=== PATIENT | male | born 1955 | race Caucasian/White ===

== ENCOUNTER → 2017-04-10 | Outpatient (CLI) | payer OTHER ==
[~2017-04-10] MED LIST: LORTAB 7.5/5001 TA1 PO
== END ==
LOC: SLEEPLAB 14:13
DX: G47.33 Obstructive sleep apnea (adult) (pediatric) (principal)

== ENCOUNTER → 2019-06-18 | Outpatient (CLI) | payer OTHER ==
[~2019-06-18] VITALS: Ht 182.9 cm; Wt 86.2 kg
[~2019-06-18] MED LIST changes: +ASPIR 8181 M1 PO; +CRESTOR5 MG PO; +NEXIUM40 MG PO
--- NOTE | ~2019-06-18 | P ---
[facility] [place] [address] PROCEDURE REPORT Name: NIKO KING Room #: REG [facility]#: [id number] Admission: 06/18/19 Attend Phys: Bry Randolph Discharge: Date of : 53 Report #: [id number] THIS REPORT FOR: //name// CC: Bry Pena MD DATE OF SERVICE: 06/18/2019 PROCEDURE PERFORMED: Colonoscopy with biopsies. HISTORY OF PRESENT ILLNESS: The patient is a 64-year-old male who presents today for routine screening colonoscopy. No previous history of endoscopy. He denies any symptoms. No family history of colon cancer. DESCRIPTION OF PROCEDURE: The risks and benefits of the procedure were explained to the patient, those risks including but not limited to bleeding, perforation and the risk of sedation. He understood these risks and gave informed consent. Sedation was given using propofol per anesthesia. Next, a digital rectal exam was initially performed, which was normal. Next, using a standard Olympus colonoscope, the scope was placed in the patient's anus and advanced under direct vision to the cecum. The overall prep was good. In the cecum, there was a 3 mm sessile polyp. This was removed with cold forceps, otherwise normal. The ileocecal valve was normal. The ascending, transverse and descending colon were normal. Multiple diverticula were noted in the sigmoid colon, no evidence of inflammation, otherwise normal. The rectal mucosa was normal. On retroflexion, small nonbleeding internal hemorrhoids were noted. Scope was then withdrawn and the procedure terminated. The patient tolerated the procedure well. IMPRESSION: 1. Small colonic polyp. 2. Sigmoid diverticulosis. 3. Internal hemorrhoids. 4. Otherwise, normal colonoscopy. RECOMMENDATIONS: 1. Await biopsy results. 2. If polyp is hyperplastic, repeat in 10 years; if adenomatous polyp, repeat in 5 years. [facility] [address] [place] [address] PROCEDURE REPORT Name: NIKO KING Room #: REG [facility].#: [id number] Admission: 06/18/19 Attend Phys: Bry Randolph Discharge: Date of : 53 Report #: [id number] Thank you for allowing me to participate in his care. By: [id number] [id number] Bry Bowman MD /nt
--- NOTE | 2019-06-20 20:06 | PATH ---
[facility] [address] [place] [address] PATHOLOGY RPT PROCEDURE Name: NIKO KING Room #: REG [facility].#: [id number] Admission: 06/18/19 Date of : 53 Discharge: Report #: [id number] Path Case #: [id number] [facility] Accession Number: [id number] . 01 Material submitted: . cecum - POLYP AT CECUM . 01 Clinical history: . Pre-op diagnosis: Screening Post-op diagnosis: Diverticulosis, colon polyp . 02 Diagnosis: "Polyp at cecum", biopsy: - Tubular adenoma; no high-grade dysplasia. (CLW:pit; 06/20/2019) P 06/20/2019 1417 Local . 02 Electronically signed: . Selma Monaco MD, Pathologist NPI- [id number] . 01 Gross description: . The specimen is received in formalin, labeled "Niko King, polyp at cecum". Received are two segments of pale cuellar soft tissue ranging in size from 0.3 to 0.4 cm in maximum dimensions. The specimen is submitted entirely in cassette A1. (CAA; 06/19/2019) QAC/QAC 06/19/2019 1045 Local . 02 Pathologist provided ICD-10: D12.0 . 02 CPT . 569231 Specimen Comment: A courtesy copy of this report has been sent to [phone], [phone] Specimen Comment: [id number] Specimen Comment: Report sent to / DR CHAVEZ Performed at: [address], [place], [place] [id number] MD Silverio Casanova MD Phone: [phone] Performed at: [address] [id number] MD Yane Smith MD Phone: [phone]
== END | disposition home or self-care (01) ==
LOC: GI 07:50
DX: Z12.11 Encounter for screening for malignant neoplasm of colon (principal); D12.0 Benign neoplasm of cecum; K57.30 Diverticulosis of large intestine without perforation or abscess without bleeding; K64.8 Other hemorrhoids; E78.5 Hyperlipidemia, unspecified; G47.30 Sleep apnea, unspecified; K21.9 Gastro-esophageal reflux disease without esophagitis; Z98.890 Other specified postprocedural states; Z96.653 Presence of artificial knee joint, bilateral; Z79.899 Other long term (current) drug therapy; Z88.8 Allergy status to other drugs, medicaments and biological substances; Z79.82 Long term (current) use of aspirin
CPT/HCPCS: 62110; 62900